=== PATIENT | female | born 1940 | race Caucasian/White ===

== ENCOUNTER → 2017-10-08 | Day surgery (SDC) | payer OTHER, BC ==
[2017-09-30 10:38] VITALS: BMI 27.0
[~2017-10-08] VITALS: Ht 147.3 cm; Wt 59.1 kg
[~2017-10-08] MED LIST: ALPR0.25 PO; CHOL20005 PO; CIPR1TAB11 PO; CITA20TA4 PO; DICY10CA12 PO; DONE1TAB26 PO; FENTANYL CITRATE INJ 50 MCG/1 ML 2 ML VIAL ONE; FIBE1CHW8 PO; FLUT0.15 NAE; HYDRALAZINE PO; LIDOCAINE HCL 2% 2 ML VIAL (20MG/ML) ONE; LOSA1TAB38 PO; LUTE15CA PO; MULTTAB58 PO; PANT40TA PO; PROPOFOL IV EMULSION 10 MG/ML 20 ML VIAL IV ONE; SIMV20TA2 PO; SODIUM CHLORIDE 0.9% 500ML 500 ML IV ONE; TERA5CAP PO; [UNRECOGNIZED DRUG - CODE] PO
[2017-10-08 09:46] VITALS: Ht 147.3 cm; Wt 59.1 kg
--- NOTE | 2017-10-08 10:26 | Endo History and Physical ---
History & Physical Date of Service: Oct 08, 2017. Chief Complaint: DIARRHEA DYSPHAGIA Referring Physician: ALFONSO LICEA History of Present Illness Diarrhea, rectal bleeding and dysphagia. Here foe EGD and colonoscopy Past Surgical History Hx Cardiac Surgery: No Hx Internal Defibrillator: No Hx Pacemaker: No Hx Abdominal Surgery: Yes (ANNE-MARIE, D&C'S, TONSILLECTOMY) Hx of Implantable Prosthesis: No Hx Post-Op Nausea and Vomiting: No Hx Cancer Surgery: No Hx Thoracic Surgery: No Hx Orthopedic: No Hx Urinary Tract Surgery: No Family History None Social History Smoking Status: Never Smoker Hx Substance Use: No Hx Alcohol Use: No Allergies Coded Allergies: NO KNOWN DRUG ALLERGIES (Verified Allergy, Unknown, ., 10/08/17) Current Medications Reported Home Medications Medications Dose Route/Sig Max Daily Dose Days Date Category Dose Instructions Cipro (Ciprofloxacin) 250 Mg Tab 250 Mg PO BID 10/08/17 Reported [Hydralazine] 1 Tab PO BID 09/30/17 Reported UNSURE OF STRENGTH Hytrin (Terazosin HCl) 5 Mg Cap 5 Mg PO HS 09/30/17 Reported Acid [employer] Maximum Stre (Famotidine) 20 Mg Tab 1 Tab PO HS 09/30/17 Reported Fiber Adult Gummies 2 gm (Fiber) 1 Chw Chw 1 Dose PO DAILY 09/30/17 Reported Dicyclomine Hcl 10 Mg Cap 1 Cap PO TID 09/30/17 Reported Flonase Allergy Relief (Fluticasone Propionate (Nasal)) 50 Mcg/Act Spr 1 [place] MINH QAM 09/30/17 Reported Cozaar (Losartan Potassium) 100 Mg Tab 100 Mg PO QAM 09/30/17 Reported Xanax (Alprazolam) 0.25 Mg Tab 0.25 Mg PO HS 09/30/17 Reported Protonix (Pantoprazole Sodium) 40 Mg Tab 40 Mg PO QAM 09/30/17 Reported Multivitamin (Multiple Vitamin) 1 Tab Tab 1 Tab PO QAM 09/30/17 Reported Vitamin D3 (Cholecalciferol) 2,000 Unit Tab 1 Tab PO QAM 09/30/17 Reported Lutein (Lutein-Zeaxanthin) 1 Cap Cap 1 Cap PO HS 09/30/17 Reported Zocor (Simvastatin) 20 Mg Tab 20 Mg PO QPM 09/30/17 Reported Citalopram Hydrobromide 20 Mg Tab 1 Tab PO QAM 09/30/17 Reported Donepezil Hcl (Donepezil Hydrochloride) 10 Mg Tab 1 Tab PO HS 09/30/17 Reported Vital Signs Weight (Kilograms): 59.09 Height (Feet): 4 Height (Inches): 10 Date Time Temp Pulse Resp B/P (MAP) Pulse Ox O2 Delivery O2 Flow Rate FiO2 10/08/17 10:01 36.8 73 20 134/51 (78) 98 Room Air Physical Exam General Appearance: no apparent distress Respiratory/Chest: Auscultation: breath sounds normal Cardiovascular: Heart Auscultation: RRR Abdomen: Inspection & Palpation: soft Liver: non-tender Assessment and Plan Stable for EGD and colonoscopy
--- NOTE | 2017-10-08 11:29 | GI REPORT ---
Procedure Date: 10/08/2017 10:16 AM Procedure: Upper GI endoscopy Indications: Dysphagia, Diarrhea Medicines: Monitored Anesthesia Care Complications: No immediate complications. Estimated Blood Loss: Estimated blood loss: none. Procedure: Pre-Anesthesia Assessment: - Prior to the procedure, a History and Physical was performed, and patient medications and allergies were reviewed. The patient is competent. The risks and benefits of the procedure and the sedation options and risks were discussed with the patient. All questions were answered and informed consent was obtained. Patient identification and proposed procedure were verified by the physician and the nurse in the procedure room. Mental Status Examination: alert and oriented. Airway Examination: normal oropharyngeal airway and neck mobility. Respiratory Examination: clear to auscultation. CV Examination: normal. ASA Grade Assessment: III - A patient with severe systemic disease. After reviewing the risks and benefits, the patient was deemed in satisfactory condition to undergo the procedure. The anesthesia plan was to use monitored anesthesia care (MAC). Immediately prior to administration of medications, the patient was re-assessed for adequacy to receive sedatives. The heart rate, respiratory rate, oxygen saturations, blood pressure, adequacy of pulmonary ventilation, and response to care were monitored throughout the procedure. The physical status of the patient was re-assessed after the procedure. After obtaining informed consent, the endoscope was passed under direct vision. Throughout the procedure, the patient's blood pressure, pulse, and oxygen saturations were monitored continuously. The Scope was introduced through the mouth, and advanced to the second part of duodenum. The upper GI endoscopy was accomplished without difficulty. The patient tolerated the procedure well. Findings: The examined esophagus was normal. No endoscopic abnormality was evident in the esophagus to explain the patient's complaint of dysphagia. It was decided, however, to proceed with dilation of the entire esophagus. A guidewire was placed and the scope was withdrawn. Dilation was performed with a Savary dilator with no resistance at 48 Fr and 51 Fr. The dilation site was examined following endoscope reinsertion and showed no bleeding. A medium-sized hiatal hernia was present. Mildly erythematous mucosa was found in the gastric antrum. Biopsies were taken with a cold forceps for histology. Biopsies were taken with a cold forceps for Helicobacter pylori testing. Verification of patient identification for the specimen was done by the physician and nurse using the patient's name and date. The duodenal bulb and second portion of the duodenum were normal. Biopsies were taken with a cold forceps for histology. Impression: - Normal esophagus. - No endoscopic esophageal abnormality to explain patient's dysphagia. Esophagus dilated. - Erythematous mucosa in the antrum. Biopsied. - Normal duodenal bulb and second portion of the duodenum. Biopsied. Recommendation: - Discharge patient to home. - Await pathology results. Leonard Rojas MD 10/08/2017 11:29:09 AM This report has been signed electronically. Note Initiated On: 10/08/2017 10:16 AM I attest to the content of the Intraoperative Record and orders documented therein, exceptions below
--- NOTE | 2017-10-08 11:36 | GI REPORT ---
Procedure Date: 10/08/2017 11:03 AM Procedure: Colonoscopy Indications: Chronic diarrhea Medicines: Monitored Anesthesia Care Complications: No immediate complications. Estimated Blood Loss: Estimated blood loss: none. Procedure: Pre-Anesthesia Assessment: - Prior to the procedure, a History and Physical was performed, and patient medications and allergies were reviewed. The patient is competent. The risks and benefits of the procedure and the sedation options and risks were discussed with the patient. All questions were answered and informed consent was obtained. Patient identification and proposed procedure were verified by the physician and the nurse in the procedure room. Mental Status Examination: alert and oriented. Airway Examination: normal oropharyngeal airway and neck mobility. Respiratory Examination: clear to auscultation. CV Examination: normal. ASA Grade Assessment: III - A patient with severe systemic disease. After reviewing the risks and benefits, the patient was deemed in satisfactory condition to undergo the procedure. The anesthesia plan was to use monitored anesthesia care (MAC). Immediately prior to administration of medications, the patient was re-assessed for adequacy to receive sedatives. The heart rate, respiratory rate, oxygen saturations, blood pressure, adequacy of pulmonary ventilation, and response to care were monitored throughout the procedure. The physical status of the patient was re-assessed after the procedure. After I obtained informed consent, the scope was passed under direct vision. Throughout the procedure, the patient's blood pressure, pulse, and oxygen saturations were monitored continuously. The scope was introduced through the anus and advanced to the terminal ileum. The colonoscopy was performed without difficulty. The patient tolerated the procedure well. The quality of the bowel preparation was fair. The terminal ileum, ileocecal valve, appendiceal orifice, and rectum were photographed. Findings: The digital rectal exam was normal. The perianal exam findings include a perianal rash. The terminal ileum appeared normal. The colon (entire examined portion) appeared normal. Biopsies for histology were taken with a cold forceps from the right colon and left colon for evaluation of microscopic colitis. Verification of patient identification for the specimen was done by the physician and nurse using the patient's name and date. Multiple small and large-mouthed diverticula were found in the entire colon. Non-bleeding internal hemorrhoids were found during retroflexion. The hemorrhoids were small. Impression: - Preparation of the colon was fair. - Perianal rash found on perianal exam. - The examined portion of the ileum was normal. - The entire examined colon is normal. Biopsied. - Diverticulosis in the entire examined colon. - Non-bleeding internal hemorrhoids. Recommendation: - Discharge patient to home. - Await pathology results. - Refer to Dermatology for the rash. - Repeat colonoscopy is not recommended for screening purposes. - Return to referring physician. Leonard Rojas MD 10/08/2017 11:35:43 AM This report has been signed electronically. Note Initiated On: 10/08/2017 11:03 AM I attest to the content of the Intraoperative Record and orders documented therein, exceptions below
--- NOTE | 2017-10-08 11:37 | Discharge Instructions ---
Endoscopy Patient Instructions Date / Procedure(s) Performed Oct 08, 2017. Colonoscopy, EGD Allergy Information Coded Allergies: NO KNOWN DRUG ALLERGIES (Verified Allergy, Unknown, ., 10/08/17) Discharge Date / Findings Oct 08, 2017. Hiatal hernia. Normal esophagus, dilated. Normal stomach and duodenum, biopsied. Diverticulosis and hemorrhoids. Provider Instructions Activity Restrictions - No exercising or heavy lifting for 24 hours. - Do not drink alcohol the day of the procedure. - Do not drive a car or operate machinery until the day after the procedure. - Do not make any important decisions or sign important papers in 24 hours after the procedure. Following Day: - Return to full activity which may include returning to work/school. Diet Start your diet with liquids and light foods (jello, soup, juice, toast). Then eat your usual diet if not nauseated. Treatment For Common After Affects For mild abdominal pain, bloating, or excessive gas: - Rest - Eat lightly - Lie on right side Follow-Up Information Follow-up with ALFONSO LICEA as scheduled Anesthesia Information What You Should Know You have had a procedure that required some medicine to reduce anxiety and discomfort. This treatment is called moderate sedation. After receiving the treatment, you may be sleepy, but you will be able to breathe on your own. The effects of the treatment may last for several hours. Follow these instructions along with Activity/Diet recommendations noted above: * Do NOT do anything where dizziness or clumsiness would be dangerous. * Rest quietly at home today, then you can be up and about tomorrow. * Have a responsible person stay with you the rest of today. * You may have had an I.V. today. If so, you may take the dressing off later today. Recommendations Call your doctor if: * Trouble breathing * Continuous vomiting for more than 24 hours * Temperature above 101 degrees * Severe abdominal pain or bloating * Pain not relieved by pain medicine ordered * There is increased drainage or redness from any incision * A large amount of rectal bleeding greater than 2-3 tablespoons. (If you had a polyp/s removed or have hemorrhoids, a small amount of blood - from the rectum is to be expected.) * You have any unanswered questions or concerns. IN THE EVENT OF A SERIOUS EMERGENCY, GO TO THE NEAREST EMERGENCY ROOM Your discharge instructions were prepared by provider Leonard Rojas. Patient Instructions Signature Page Miesha Walker Patient (or Guardian) Signature/Date: I have read and understand the instructions given to me by my caregivers. Caregiver/RN/Doctor Signature/Date: The above-named patient and/or guardian has received patient instructions on this date. + Original Patient Signature Page (only) stays with chart. Please make copy for patient.
[2017-10-08 12:00] VITALS: BP 172/79; PULSE 74; O2SAT 98
--- NOTE | 2017-10-08 12:29 | Anesthesiology Progress Note ---
Anesthesia Post Op Note Date & Time Oct 08, 2017 at 12:28 Vital Signs Pain Intensity: 0 Vital Signs Past 12 Hours Date Time Temp Pulse Resp B/P (MAP) Pulse Ox O2 Delivery O2 Flow Rate FiO2 10/08/17 12:00 74 20 172/79 (110) 98 Room Air 10/08/17 11:40 73 20 168/79 (108) 99 Room Air 10/08/17 11:25 73 20 139/65 (89) 98 Room Air 10/08/17 10:01 36.8 73 20 134/51 (78) 98 Room Air Notes Mental Status: alert / awake / arousable, participated in evaluation Nausea / Vomiting: adequately controlled Pain: adequately controlled Airway Patency, RR, SpO2: stable & adequate BP & HR: stable & adequate Hydration State: stable & adequate Anesthetic Complications: no major complications apparent Anesthetic Complications: patient reports hearing voices, feeling pressure and minor discomfort during colonoscopy. Denies awareness during EGD. Denies significant discomfort during colonoscopy.
== END | disposition home or self-care (01) ==
LOC: C.GI 09:24
PROVIDERS: ATTEND Student in an Organized Health Care Education/Training Program
DX: R13.10 Dysphagia, unspecified (principal); R19.7 Diarrhea, unspecified; K44.9 Diaphragmatic hernia without obstruction or gangrene; K57.30 Diverticulosis of large intestine without perforation or abscess without bleeding; K29.50 Unspecified chronic gastritis without bleeding; K64.8 Other hemorrhoids; R21 Rash and other nonspecific skin eruption; I48.91 Unspecified atrial fibrillation; I10 Essential (primary) hypertension; G20 Parkinson's disease; Z90.49 Acquired absence of other specified parts of digestive tract